=== PATIENT | male | born 1980 | race Caucasian/White ===

== ENCOUNTER 2021-02-04 00:47 | Emergency (ER) | payer OTHER, SELFPAY ==
[2021-02-04 00:48] VITALS: BP 140/97; PULSE 94; RESP 15; TEMP 36.6; O2SAT 99; BMI 29.3
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
[2021-02-04 03:25] VITALS: RESP 16
== END 2021-02-04 03:25 | disposition home or self-care (01) ==
PROVIDERS: Emergency Provider Student in an Organized Health Care Education/Training Program
DX: S40.812A Abrasion of left upper arm, initial encounter (principal); V53.0XXA Driver of pick-up truck or van injured in collision with car, pick-up truck or van in nontraffic accident, initial encounter; Y93.89 Activity, other specified; Y92.410 Unspecified street and highway as the place of occurrence of the external cause; Y99.0 Civilian activity done for income or pay
CPT/HCPCS: 99284